=== PATIENT | male | born 1980 | race Caucasian/White ===

== ENCOUNTER 2020-09-12 13:25 | Emergency (ER) | payer MEDICAID, OTHER ==
[2020-09-12] MEDS ORDERED: Bacitracin Oint 1 GM U/D Packet TOP ONE (15:10)
--- NOTE | 2020-09-12 15:10 | EDM.PDOC ---
ED HPI GENERAL MEDICAL PROBLEM - General Chief Complaint: Laceration Stated Complaint: CUT THUMB WITH A KNIFE Time Seen by Provider: 09/12/20 15:07 Source of Information: Reports: Patient History Limitations: Reports: No Limitations - History of Present Illness INITIAL COMMENTS - FREE TEXT/NARRATIVE: Jose is a 40 year old male whom present to ER with female significant other for evaluation of left thumb laceration which occurred approximately 24 hours ago. Jose is have difficulty controlling bleeding and extending right thumb. Patient is right handed and works as a [employer]. Jose does not known when his last tetanus shot was completed. - Related Data Allergies Allergy/AdvReac Type Severity Reaction Status Date / Time No Known Allergies Allergy Verified 09/12/20 15:07 Home Meds: Home Meds NK [No Known Home Meds] 09/12/20 [History] ED ROS GENERAL - Review of Systems Review Of Systems: Comprehensive ROS is negative, except as noted in HPI. ED EXAM, SKIN/RASH Exam: See Below Exam Limited By: No Limitations General Appearance: Alert, WD/WN, No Apparent Distress Eye Exam: Bilateral Eye: EOMI, Normal Inspection Ears: Hearing Grossly Normal Nose: Normal Inspection Throat/Mouth: Normal Voice, No Airway Compromise Head: Atraumatic Neck: Normal Inspection Respiratory/Chest: No Respiratory Distress, Lungs Clear, Normal Breath Sounds Cardiovascular: Normal Peripheral Pulses, Regular Rate, Rhythm Extremities: Other (Thumb laceration at level of mid proximal phalanx with poor strength straighten joint on level of IP joint. ) ED SKIN PROCEDURES - Laceration/Wound Repair Right Digit - 1st (Thumb) Appearance: Subcutaneous, Mildly Contaminated Distal NVT: Other (full thickness extensor tendon injury) Anesthetic Type: Digital Local Anesthesia - Lidocaine (Xylocaine): 1% with EPI Local Anesthetic Volume: 5cc Saline Irrigation (cc's): 500 Exploration/Debridement/Repair: Wound Explored, In a Bloodless Field, Explored to Base, No Foreign Material Found Closed with: Sutures Lac/Wound length In cm: 3 Suture Size: 5-0 # of Sutures: 4 (approximate skin margins) Suture Type: Nylon Tetanus Status Addressed: Yes Complications: Yes Complication Description: 100% extensor tendon laceration at level of middle phalanx (right) dominant hand thumb. - Splinting Right Thumb Splint Site: thumb spica Pre-Procedure NV Status: Normal Post-Procedure NV Status: Normal Splint Material: Fiberglass Splint Design: Thumb Spica Applied & Form Fitted By: Provider, Nurse Provider Post-Splint Application NV Check: NV Status Normal, Good Position Complications: Yes (contaminated woudnwtih delayed repair, extensor tendon laceration 100% dominant hand. Employed as [employer].) Course - Vital Signs Last Recorded V/S: Last Vital Signs Temp 36.7 C 09/12/20 15:12 Pulse 85 09/12/20 15:12 Resp 18 09/12/20 15:12 BP 146/98 H 09/12/20 15:12 Pulse Ox 100 09/12/20 15:12 - Orders/Labs/Meds Orders: Active Orders 24 hr Category Date Time Status Splinting [RC] ASDIRECTED Care 09/12/20 15:16 Active Vaccines to be Administered [RC] PER UNIT ROUTINE Care 09/12/20 15:14 Active Meds: Medications Discontinued Medications Generic Name Dose Route Start Last Admin Trade Name Freq PRN Reason Stop Dose Admin Bacitracin 1 dose 09/12/20 15:10 09/12/20 15:30 Bacitracin Oint 1 Gm U/D Packet TOP 09/12/20 15:11 1 dose ONETIME ONE Administration Diphtheria/Tetanus/Acell Pertussis 0.5 ml 09/12/20 15:14 09/12/20 15:30 Diphtheria,Pertussis(Acell),Tetanus Vaccine 0.5 Ml Syringe IM 09/12/20 15:15 0.5 ml .ONCE ONE Administration Lidocaine HCl 5 ml 09/12/20 15:10 09/12/20 15:30 Lidocaine 1% 5 Ml Sdv INJECT 09/12/20 15:11 5 ml ONETIME ONE Administration - Re-Assessments/Exams Free Text/Narrative Re-Assessment/Exam: 09/12/20 16:14 Skin repair, tolerated well. Explained need to close follow-up this week call on Sunday, for evaluation with hand surgeon for tendon repair recommended. Thumb spic splint applied to prevent migration of extensor tendon, spread of infection due to open wound for more than 24 hours sine time of injury. Keflex 500mg BID x 5 days for infection prevention. Additional antibiotic may be need at time of Orthopedic/Hand surgeon evaluation. Departure - Departure Time of Disposition: 16:16 Disposition: Home, Self-Care 01 Clinical Impression: Laceration of finger, complicated, Extensor tendon laceration of hand with open wound, Tetanus toxoid vaccination administered at current visit - Discharge Information Referrals: PCP,None [Primary Care Provider] - Forms: ED Department Discharge Additional Instructions: 1. Keep splint in placed until follow-up with Hand surgeon. 2. Keflex 500mg every am and pm x 5 days for infection preventions. 3. Call [facility] for hand surgeon evaluation for extensor tendon injury involving thumb dominant (right hand). Limitation of right thumb IP joint due to tendon laceration 100%. 4. Tylenol and/or Ibuprofen for pain if needed. Sepsis Event Note (ED) - Focused Exam Vital Signs: Vital Signs Temp Pulse Resp BP Pulse Ox 09/12/20 15:12 36.7 C 85 18 146/98 H 100 09/12/20 15:04 36.7 C 85 18 146/98 H 100 - My Orders Last 24 Hours: My Active Orders 09/12/20 15:14 Vaccines to be Administered [RC] PER UNIT ROUTINE 09/12/20 15:16 Splinting [RC] ASDIRECTED - Assessment/Plan Last 24 Hours: My Active Orders 09/12/20 15:14 Vaccines to be Administered [RC] PER UNIT ROUTINE 09/12/20 15:16 Splinting [RC] ASDIRECTED
[2020-09-12] MEDS ORDERED: Diphtheria,Pertussis(Acell),Tetanus Vaccine 0.5 ML Syringe IM ONE (15:14)
== END 2020-09-12 16:36 | disposition home or self-care (01) ==
LOC: JP.ED 13:25
DX: S61.011A Laceration without foreign body of right thumb without damage to nail, initial encounter (principal); Z23 Encounter for immunization; W26.8XXA Contact with other sharp object(s), not elsewhere classified, initial encounter
CPT/HCPCS: 12002; 13132; 29130; 90471; 90715; 99282-25; 99283

== ENCOUNTER 2023-10-20 21:01 | Emergency (ER) | payer OTHER ==
[2023-10-20 21:48] LABS: BASOPHILS ABSOLUTE AUTO 0.12 K/uL (0.00-0.10); EOSINOPHILS PERCENT AUTO 6.5 % (0.0-5.4); HEMATOCRIT 38.5 % (38.4-49.7); HEMOGLOBIN 13.4 g/dL (12.9-16.9); IMMATURE GRAN ABSOLUTE AUTO 0.01 K/uL (0.00-0.23); IMMATURE GRAN PERCENT AUTO 0.2 % (0.0-0.7); LYMPHOCYTES ABSOLUTE AUTO 2.47 K/uL (0.8-3.3); LYMPHOCYTES PERCENT AUTO 40.4 % (11.4-47.7); MEAN CORPUSCULAR HEMOGLOBIN 29.3 pg (31.6-35.5); MEAN CORPUSCULAR HGB CONC 34.8 g/dL (31.6-35.5); MEAN CORPUSCULAR VOLUME 84.1 fL (81.4-99.0); MONOCYTES ABSOLUTE AUTO 0.49 K/uL (0.20-0.90); NEUTROPHILS ABSOLUTE AUTO 2.63 K/uL (1.0-7.6); NEUTROPHILS PERCENT AUTO 42.9 % (40.0-78.1); PLATELET COUNT,PLT 283 K/uL (130-375); RED BLOOD CELL COUNT 4.58 M/uL (4.14-5.76); WHITE BLOOD CELL COUNT,WBC 6.1 K/uL (3.2-11.0)
[2023-10-20] MEDS ORDERED: Silver Nitrate Applicator Each TOP ONE (21:53)
[2023-10-20 22:03] LABS: AMPHETAMINES SCREEN, URINE NEGATIVE (NEGATIVE); BARBITURATE SCREEN,URINE NEGATIVE (NEGATIVE); BENZODIAZEPINES SCREEN,URINE NEGATIVE (NEGATIVE); METHADONE SCREEN, URINE NEGATIVE (NEGATIVE); METHAMPHETAMINES SCREEN, URINE NEGATIVE (NEGATIVE); OXYCODONE SCREEN,URINE NEGATIVE (NEGATIVE); PROPOXYPHENE SCREEN,URINE NEGATIVE (NEGATIVE); THC SCREEN,URINE 50 NG/ML NEGATIVE (NEGATIVE)
[2023-10-20 22:09] LABS: ALANINE AMINOTRANSFERASE,ALT 29 U/L (12-78); ALBUMIN 3.7 g/dL (3.4-5.0); ALKALINE PHOSPHATASE 74 U/L (46-116); ANION GAP 13.5 mmol/L (5.0-14.0); ASPARTATE AMNIOTRANSFERASE,AST 29 U/L (15-37); BILIRUBIN TOTAL 0.2 mg/dL (0.2-1.0); BLOOD UREA NITROGEN,BUN 7 mg/dL (7-18); CALCIUM 8.3 mg/dL (8.5-10.1); CARBON DIOXIDE,CO2 23 mmol/L (21-32); CHLORIDE,CL 107 mmol/L (100-108); EST CRCL DRUG DOSING (CG) 90.25 mL/min; ESTIMATED GFR 95 mL/min (>60); GLUCOSE RANDOM 114 mg/dL (74-106); POTASSIUM,K 3.7 mmol/L (3.6-5.2); PROTEIN TOTAL,TP 7.4 g/dL (6.4-8.2); SODIUM,NA 143 mmol/L (140-148)
[2023-10-21] MEDS: Nicotine 14 MG/24 Hr Patch TRDERM ONE (00:29)
[2023-10-21] MEDS: levETIRAcetam 500 MG/5 ML SDV IVPUSH ONE (00:30)
[2023-10-21] MEDS: fentaNYL 100 MCG/2 ML SDV IVPUSH ONE (00:48)
== END 2023-10-21 01:50 ==
LOC: JP.ED 21:01
DX: S06.6XAA Traumatic subarachnoid hemorrhage with loss of consciousness status unknown, initial encounter (principal); S06.5XAA Traumatic subdural hemorrhage with loss of consciousness status unknown, initial encounter; F17.210 Nicotine dependence, cigarettes, uncomplicated; Z86.16 Personal history of COVID-19; X58.XXXA Exposure to other specified factors, initial encounter
CPT/HCPCS: 36415; 70450; 70486; 80053; 80305; 80307; 83605; 85025; 96374; 96375; 99285; A9270; J1953; J3010